=== PATIENT | female | born 1990 | race African-American/Black ===

== ENCOUNTER 2023-01-14 18:00 | Inpatient (IN) | payer BC, MEDICAID ==
[~2023-01-14] VITALS: Ht 172.7 cm; Wt 87.5 kg
[2023-01-14] MEDS ORDERED: TERBUTALINE SULFATE 1 MG/ML VIAL SUBCUT ONE (18:45)
[2023-01-14] MEDS ORDERED: OXYTOCIN/0.9 % SODIUM CHLORIDE 1,000 ML IV SCH (18:45)
[2023-01-14 19:26] LABS: BASOPHILS # (AUTO) 0.1 K/uL (0.0-0.2); BASOPHILS % (AUTO) 0.5 % (0.0-2.0); EOSINOPHILS % (AUTO) 0.3 % (0.0-4.0); HEMATOCRIT 33.5 % (36-48); HEMOGLOBIN 10.6 g/dL (12.0-16.0); LYMPHOCYTES # (AUTO) 1.6 K/uL (1.0-5.5); LYMPHOCYTES % (AUTO) 13.8 % (20.5-51.5); MEAN CORPUSCULAR HEMOGLOBIN 25 pg (27-31); MEAN CORPUSCULAR HGB CONC 32 % (32-36); MEAN CORPUSCULAR VOLUME 79 fL (79.0-98.0); MONOCYTES % (AUTO) 8.4 % (1.7-9.3); NEUTROPHILS # (AUTO) 8.8 K/uL (1.8-7.7); PLATELET COUNT (AUTO) 330 K/uL (130-430); RED BLOOD CELL COUNT(AUTO) 4.23 MIL/uL (4.2-6.2); RED CELL DISTRIBUTION WIDTH 14.9 % (9.0-15.0); WHITE BLOOD COUNT (AUTO) 11.4 K/uL (4.8-10.8)
[2023-01-14] MEDS ORDERED: LIGHT MINERAL OIL 10 ML VIAL MC ONE (20:27)
[2023-01-14] MEDS ORDERED: NALOXONE HCL 0.4 MG/ML AMP (NARCAN) ONE (20:27)
[2023-01-14] MEDS ORDERED: LIDOCAINE PF 1% 30ML(POUR BTL) INJ ONE (20:27)
[2023-01-14 20:49] VITALS: BP_SYST 121
[2023-01-14] MEDS: LR 1,000 ML IV SCH ×2 (21:02→23:18)
[2023-01-14] MEDS ORDERED: HYDROmorphone 2 MG/ML VIAL IVP PRN (21:15)
[2023-01-14] MEDS ORDERED: HYDROmorphone 1 MG/ML INJ. CARTRIDGE IVP PRN (21:15)
[2023-01-14] MEDS ORDERED: NALOXONE HCL 0.4 MG/ML AMP (NARCAN) IVP PRN (21:15)
[2023-01-14] MEDS ORDERED: fentaNYL CITRATE/PF 100 MCG/2 ML AMP ONE (22:57)
[2023-01-14] MEDS ORDERED: ROPIVACAINE HCL/PF 0.2% 200 ML ONE (22:57)
[2023-01-15] MEDS ORDERED: DIPHENHYDRAMINE INJ 50 MG/ML VIAL IVP PRN (00:15)
[2023-01-15] MEDS ORDERED: ONDANSETRON HCL 4 MG/2 ML VIAL IVP PRN (00:15)
[2023-01-15] MEDS ORDERED: FENT2mCg/mL-ROPIVA0.2%/NS EPID 200 ML EP SCH (00:15)
[2023-01-15] MEDS ORDERED: NALOXONE HCL 0.4 MG/ML AMP (NARCAN) IVP PRN ×2 (00:15→11:45)
[2023-01-15] MEDS: LR 1,000 ML IV SCH (02:56)
[2023-01-15] MEDS ORDERED: WITCH HAZEL LEAF 1 MED.PAD MED.PAD TP PRN (09:00)
[2023-01-15] MEDS ORDERED: OXYTOCIN/0.9 % SODIUM CHLORIDE 1,000 ML IV ONE (09:00)
[2023-01-15] MEDS ORDERED: DERMOPLAST SPRAY TP PRN (09:00)
[2023-01-15] MEDS ORDERED: IBUPROFEN 600 MG TABLET PO ONE (10:00)
[2023-01-15] MEDS ORDERED: HYDROcodone/ACETAMIN 5-325 MG TAB (NORCO/ VICODIN) PO PRN (11:45)
[2023-01-15] MEDS ORDERED: OXYCODONE/ACETAMINOPHEN 5-325 TABLET PO PRN ×2 (11:45)
[2023-01-15] MEDS ORDERED: IBUPROFEN 600 MG TABLET PO SCH (15:00)
[2023-01-15] MEDS ORDERED: HYDR-3919 PO (19:12)
[2023-01-15] MEDS ORDERED: IBUP-1969 PO (19:12)
== END 2023-01-15 19:49 | disposition home or self-care (01) | DRG 806 ==
LOC: SPU 18:00
PROVIDERS: ADMIT Specialist; ATTEND Specialist
PROC: 10E0XZZ Delivery of Products of Conception, External Approach (ICD-10-PCS; principal; 2023-01-15)
PROC: 10907ZC Drainage of Amniotic Fluid, Therapeutic from Products of Conception, Via Natural or Artificial Opening (ICD-10-PCS; 2023-01-15)
PROC: 3E0R3BZ Introduction of Anesthetic Agent into Spinal Canal, Percutaneous Approach (ICD-10-PCS; 2023-01-15)
PROC: 00HU33Z Insertion of Infusion Device into Spinal Canal, Percutaneous Approach (ICD-10-PCS; 2023-01-15)
DX: O69.81X0 Labor and delivery complicated by cord around neck, without compression, not applicable or unspecified (principal); O41.03X0 Oligohydramnios, third trimester, not applicable or unspecified; Z37.0 Single live birth; Z3A.38 38 weeks gestation of pregnancy
CPT/HCPCS: 36415; 81002; 85025; 86592; 86886; 86900; 86901; J1170; J2001; J2310; J2590; J3010; J7120